=== PATIENT | male | born 1960 | race Caucasian/White ===

== ENCOUNTER 2017-11-18 18:24 | Inpatient (IN) | payer BC ==
[~2017-11-18] VITALS: Ht 172.7 cm; Wt 137.6 kg
[2017-11-18 18:36] VITALS: Ht 172.7 cm; Wt 137.6 kg
[2017-11-18 18:57] LABS: BASOPHIL % 1.3 % (0-2); PLATELET COUNT 209 x10^3mcL (130-400); RED CELL DISTRIBUTION WIDTH 13.8 % (11.5-14.5)
[2017-11-18 19:07] LABS: CALCIUM 8.5 mg/dL (8.5-10.1); CARBON DIOXIDE 28.6 mmol/L (21-32); CHLORIDE SERUM 104 mmol/L (98-107); GFR1 > 60 mL/min; GLUCOSE SERUM 176 mg/dL (74-106); POTASSIUM SERUM 3.5 mmol/L (3.5-5.1); SODIUM SERUM 142 mmol/L (136-145)
[2017-11-18 19:12] LABS: ALBUMIN 3.2 g/dL (3.4-5.0); ALKALINE PHOSPHATASE 127 U/L (46-116); ALT/SGPT 24 U/L (16-63); AST/SGOT 11 U/L (15-37); BILIRUBIN TOTAL 0.34 mg/dL (0.20-1.00); TOTAL PROTEIN, SERUM 6.9 g/dL (6.4-8.2)
[2017-11-18] MEDS ORDERED: ATENOLOL/CHLORT1 TA1 PO (19:25)
[2017-11-18 20:27] LABS: CHOLESTEROL/HDL RATIO 3.9; MAGNESIUM 1.6 mg/dL (1.8-2.4); PHOSPHOROUS 2.7 mg/dL (2.5-4.9)
[2017-11-18 20:32] LABS: T3 TOTAL 1.46 ng/mL
[2017-11-18 20:37] LABS: FREE T4 0.95 ng/dL (0.76-1.46); FREE THYROXINE INDEX 2.3 ug/dL (1.4-4.5); T4(THYROXINE) 7.2 ug/dL (4.7-13.3)
[2017-11-18 20:43] VITALS: BP 152/85
[2017-11-19 05:05] VITALS: BP 126/72
[2017-11-19 07:56] LABS: UA SPECIFIC GRAVITY >=1.030 (1.005-1.035); microscopic required? YES; urine erythrocyte NEGATIVE (NEGATIVE)
[2017-11-19 08:27] LABS: AMPHETAMINE QUAL UR NONE DETECTED
[2017-11-19 10:03] VITALS: BP 110/41
[2017-11-19] MEDS ORDERED: ATENOLOL/CHLORT1 TA1 PO (11:56)
[2017-11-19 12:49] VITALS: BP 110/41
== END 2017-11-19 13:56 | disposition home or self-care (01) | DRG 205 ==
LOC: ED 18:24 → DU 19:39
PROVIDERS: Family Medicine
DX: M94.0 Chondrocostal junction syndrome [Tietze] (principal); N17.0 Acute kidney failure with tubular necrosis; I16.1 Hypertensive emergency; E44.0 Moderate protein-calorie malnutrition; Z68.42 Body mass index [BMI] 45.0-49.9, adult; K21.9 Gastro-esophageal reflux disease without esophagitis; E83.42 Hypomagnesemia; R73.03 Prediabetes; E78.5 Hyperlipidemia, unspecified; I16.0 Hypertensive urgency; I10 Essential (primary) hypertension; Z90.49 Acquired absence of other specified parts of digestive tract
CPT/HCPCS: 83880; 84439; J2270; J2405; J7030

== ENCOUNTER 2018-07-07 16:24 | Emergency (ER) | payer BC ==
[~2018-07-07] VITALS: Ht 180.3 cm; Wt 139.7 kg
[~2018-07-07 16:24] MED LIST: ATENOLOL/CHLORT1 TA1 PO
[2018-07-07 16:41] VITALS: Ht 180.3 cm; Wt 139.7 kg
[2018-07-07 18:57] LABS: BASOPHIL % 0.2 % (0-2); PLATELET COUNT 209 x10^3mcL (130-400); RED CELL DISTRIBUTION WIDTH 13.8 % (11.5-14.5)
[2018-07-07 19:17] LABS: ALBUMIN 3.8 g/dL (3.4-5.0); ALKALINE PHOSPHATASE 149 U/L (46-116); ALT/SGPT 31 U/L (16-63); AST/SGOT 13 U/L (15-37); BILIRUBIN TOTAL 0.41 mg/dL (0.20-1.00); CALCIUM 9.4 mg/dL (8.5-10.1); CARBON DIOXIDE 32.5 mmol/L (21-32); CHLORIDE SERUM 102 mmol/L (98-107); CREATININE SERUM 1.1 mg/dL (0.7-1.3); GFR1 > 60 mL/min; GLUCOSE SERUM 118 mg/dL (74-106); TOTAL PROTEIN, SERUM 8.1 g/dL (6.4-8.2)
[2018-07-07 19:23] LABS: SODIUM SERUM 136 mmol/L (136-145)
[2018-07-07 20:03] VITALS: BP 151/89
== END 2018-07-07 20:03 | disposition home or self-care (01) ==
LOC: ED 16:24
PROVIDERS: Emergency Medicine
DX: B34.9 Viral infection, unspecified (principal); J40 Bronchitis, not specified as acute or chronic; I10 Essential (primary) hypertension
CPT/HCPCS: 36415; 83880; 87804; Q0092